=== PATIENT | female | born 1975 | race Caucasian/White ===

== ENCOUNTER 2016-08-04 05:22 | Day surgery (SDC) | payer MEDICAID ==
[~2016-08-04] VITALS: Ht 160 cm; Wt 75.6 kg
[2016-08-04] VITALS (11 sets, daily range): BP systolic 136–157; BP diastolic 86–100; PULSE 76–104; RESP 12–20; Ht 160 cm; Wt 75.6 kg
--- NOTE | 2016-08-04 07:51 | PREOPHP ---
DATE OF ADMISSION: 08/04/2016 REASON FOR ADMISSION: She is to be admitted tomorrow 08/04/2016 for Essure or a laparoscopic bilate ral tubal ligation. HISTORY OF PRESENT ILLNESS: This is a 41-year-old female, 1, para 1, who has requested ster ilization on a voluntary basis. Both the Essure procedure and the laparoscopic bilateral tubal liga tion were discussed at great lengths at the office in details. The alternatives, the benefits, the risks, and possible complications, as well as 1% failure rate of the procedures were discussed. She would prefer to have the hysteroscopic Essure placement if at all possible, but if this is not poss ible, a laparoscopic bilateral tubal ligation during the same anesthetic. She was made aware of the failure rate of both procedures and complications including the possibility of allergy to the Essur e. She was allowed to ask questions. All her questions were answered to her satisfaction, and she signed the appropriate surgical informed consents. PAST MEDICAL HISTORY: The patient denies any problems including cardiovascular disease, hypertensio n, diabetes, renal disease, liver disease, thyroid disease, or neurological problems. ALLERGIES: SHE HAS NO KNOWN ALLERGIES. MEDICATIONS: She takes no medications on a regular basis. She has had Depo-Provera for contr ol now. FAMILY HISTORY: Noncontributory. REVIEW OF SYSTEMS: A 12-point review of systems is noncontributory. PHYSICAL EXAMINATION: GENERAL: Well-developed and nourished, in no distress, alert and oriented x3. Height 5 feet 3 inch es and a weight of 165 pounds. BMI is 30. VITAL SIGNS: Showed her temperature to be 98, blood pressure 136/83, respirations 16 per minute, th e pulse is 80 per minute and regular. HEENT: Within normal limits. Pupils are PERRLA. NECK: Supple. The thyroid is nonpalpable. Lymph nodes are nonpalpable. BREASTS: Show no masses or lumps. Nipples are normal. LUNGS: Clear to percussion and auscultation. HEART: Normal sinus rhythm without a murmur. ABDOMEN: Soft without organomegaly or hernias. PELVIC: Normal external genitalia. The vagina is normal. Cervix is normal without lesions. Biman ual exam: The uterus small, firm, in the midline. There are no adnexal masses present. EXTREMITIES: Within normal limits. NEUROLOGIC: Also normal. IMPRESSION: Voluntary sterilization. PLAN: The patient is to be admitted for hysteroscopic Essure or laparoscopic bilateral tubal ligati on under general anesthesia. Dictated By: GEORGE CHRISTIANSEN/OREN Conf#: [id number] DID#: [id number]
[2016-08-04] MEDS ORDERED: LIDOCAINE 1% (MDV) 20 ML INJ ONE (07:59)
[2016-08-04] MEDS ORDERED: MIDAZOLAM 1 MG/ML 2 ML INJ ONE (07:59)
[2016-08-04] MEDS ORDERED: PROPOFOL 20 ML ONE (07:59)
[2016-08-04] MEDS ORDERED: DEXAMETHASONE 4 MG/ML 1 ML INJ ONE (08:07)
[2016-08-04] MEDS ORDERED: ONDANSETRON 4 MG INJ ONE (08:07)
[2016-08-04] MEDS ORDERED: CEFAZOLIN 1 GM INJ ONE (08:19)
[2016-08-04] MEDS ORDERED: LACTATED RINGER'S 1,000 ML IV SCH (08:48)
--- NOTE | 2016-08-04 08:48 | PD.PPDC ---
[employer] [employer] Discharge Instruction Diagnosis Final Diagnosis: Voluntary sterilization Condition Patient Condition: Good Diet Diet: Resume Regular Diet Activity/Restrictions Activity: Normal Activity May Shower Restrictions: No Sexual Activity Nothing in the Vagina No [place] Follow-up Follow-up with Physician: 1, Week/Weeks Return to clinic for [employer] Instructions: Fever greater than 101 Worsening abdominal pain Excessive Vaginal Bleeding Unable to tolerate diet GEORGE FIELDS MD Aug 04, 2016 08:47
[2016-08-04] MEDS ORDERED: ONDANSETRON 4 MG INJ IV PRN (09:00)
[2016-08-04] MEDS ORDERED: DIPHENHYDRAMINE 50 MG INJ IV PRN (09:00)
[2016-08-04] MEDS ORDERED: LORAZEPAM 2 MG INJ IV PRN (09:00)
[2016-08-04] MEDS ORDERED: IBUPROFEN 600 MG TAB PO PRN (09:00)
[2016-08-04] MEDS ORDERED: MEPERIDINE 25 MG INJ IV PRN (09:00)
[2016-08-04] MEDS ORDERED: OXYCODONE/ACETAMINOPHEN (5/325) TAB PO PRN ×2 (09:00)
[2016-08-04] MEDS ORDERED: morphine 2 MG INJ IV PRN (09:00)
[2016-08-04] MEDS ORDERED: ACETAMINOPHEN 325 MG TAB PO PRN (09:00)
[2016-08-04] MEDS ORDERED: HYDROmorphONE (0.2 MG/ML) 10ML SYG IV PRN ×2 (09:00)
--- NOTE | 2016-08-04 11:36 | OPR ---
DATE OF OPERATION: 08/04/2016 PREOPERATIVE DIAGNOSIS: Voluntary sterilization. POSTOPERATIVE DIAGNOSIS: Voluntary sterilization. PROCEDURE: Hysteroscopic bilateral Essure placement under general anesthesia. SURGEON: George Gillespie MD. ANESTHESIA: General. ANESTHESIOLOGIST: ESTIMATED BLOOD LOSS: None. SPECIMENS: None. PROCEDURE AND FINDINGS: With the patient under general anesthesia, laid on the table in the dorsal lithotomy position. Her lower abdomen was prepped with ChloraPrep and the thighs and perineum, and vagina with Betadine. After 3 minutes, she was draped in the usual sterile fashion. A weighted pos terior retractor was applied and anterior lip of the cervix grasped with a single tooth tenaculum. The cervix was dilated up to #4 Hegar dilator atraumatically. Then, the hysteroscope was passed in. The right tubal ostia was first located. The first Essure was placed and deployed successfully. Then, the contralateral side was found and a second Essure was deployed successfully in the tubes. All the instruments were then removed from the patient's vagina. The patient withstood the procedur e well and was taken to recovery room with all vital signs stable. There was practically no blood l oss. Needle, sponge and instrument count at the end of the procedure was correct twice. Dictated By: GEORGE CHRISTIANSEN/OREN Conf#: [id number] DID#: [id number]
== END 2016-08-04 10:49 | disposition home or self-care (01) ==
LOC: SDS 05:22
PROVIDERS: ATTEND Specialist
DX: Z30.2 Encounter for sterilization (principal)
CPT/HCPCS: 58565; A4264; J1100; J1170; J1200; J2250; J2405; Z7512; Z7610; J0690